=== PATIENT | male | born 1990 | race Caucasian/White ===

== ENCOUNTER 2020-12-15 10:16 | Emergency (ER) | payer MEDICAID ==
[~2020-12-15] VITALS: Ht 180.3 cm; Wt 104.5 kg
[~2020-12-15 10:16] MED LIST: CYCL-394 PO; IBUP-1051 PO; PRED20TA PO
[2020-12-15 10:21] VITALS: BP 146/103
[2020-12-15] MEDS ORDERED: NAPR-56 PO (10:48)
[2020-12-15] MEDS ORDERED: PENI250T2 PO (10:48)
== END 2020-12-15 10:59 | disposition home or self-care (01) ==
LOC: ER 10:16
DX: K08.89 Other specified disorders of teeth and supporting structures (principal); Z88.8 Allergy status to other drugs, medicaments and biological substances; Z79.899 Other long term (current) drug therapy
CPT/HCPCS: 99283

== ENCOUNTER 2024-09-19 11:22 | Emergency (ER) | payer MEDICAID ==
[~2024-09-19] VITALS: Ht 177.8 cm; Wt 111.8 kg
[2024-09-19 12:21] VITALS: BP 148/107; PULSE 106; RESP 18; TEMP 98.2; O2SAT 96
== END 2024-09-19 15:58 | disposition left against medical advice (07) ==
LOC: ER 11:22
DX: M79.604 Pain in right leg (principal); Z88.8 Allergy status to other drugs, medicaments and biological substances; Z53.21 Procedure and treatment not carried out due to patient leaving prior to being seen by health care provider